=== PATIENT | male | born 1950 | race Caucasian/White ===

== ENCOUNTER 2017-11-30 17:25 | Emergency (ER) | payer MEDICARE ==
[~2017-11-30] VITALS: Ht 193 cm; Wt 126.4 kg
[~2017-11-30 17:25] MED LIST: ALLOPURINOL300 MG PO; ALTACE5 M1 PO; ALTACE5 MG PO; ASPIRIN E.C. 8181 MG PO; BENTYL 10MG10 MG/CAP PO; CARAFATE 1GM1 G PO; CARDI-OMEGA1000 MG PO; CARVEDILOL25 MG PO; COREG 25MG25 MG/TAB PO; FOLIC ACID 40400 MCG PO; FORTAMET1000 MG PO; GLYBURIDE5 MG PO; HCTZ/TRIAMTEREN1 TA1 PO; IRON325 M1 PO; KLOR-CON M2020 MEQ PO; LEVEMIR100 U/ML SC; LIPITOR 10MG10 MG PO; LIPITOR20 MG PO; LOPID 600M600 MG/TAB PO; LOPID600 MG PO; LORTAB 10/500 51 TA1 PO; NAPRELAN500 MG PO; NAPROSYN375 MG PO; NAPROXEN EC375 MG PO; NORCO 325 MG-101 TAB PO; NORCO 325 MG-7.1 TAB PO; NOVOLIN N100 U/ML SC; NOVOLOG FLEX100 U/ML SC; NOVOLOG FLEX100 U/ML SQ; POTASSIUM CHLO10 ME5 PO; POTASSIUM75 MG PO; PRAVACHOL 40MG40 MG PO; PREVACID 30MG30 M1 PO; PRISTIQ 50 MG T50 MG PO; PRISTIQ50 M1 PO; ST. JOSEPH81 M2 PO; TERAZOSIN HCL PO; TERAZOSIN HCL2 MG PO; TERAZOSIN HCL5 M1 PO; TRIAMTERENE/HCT1 TA2 PO; VITAMIN B-1000 MCG/T PO; VITAMIN C500 MG PO; XARELTO10 MG PO; [UNRECOGNIZED DRUG - OTHER] PO; potassium PO
[2017-11-30 17:27] VITALS: TEMP 98.4
[2017-11-30] MEDS ORDERED: ZYLOPRIM 300MG300 MG PO (18:16)
[2017-11-30 18:17] LABS: INR 1.1 (0.8-3.0); PROTHROMBIN TIME 12.4 SECONDS (9.7-12.8)
[2017-11-30] MEDS ORDERED: BENTYL 10MG10 MG/CAP PO (18:17)
[2017-11-30] MEDS ORDERED: PRINIVIL40 MG PO (18:17)
[2017-11-30] MEDS ORDERED: COREG 25MG25 MG/TAB PO (18:17)
[2017-11-30] MEDS ORDERED: DESYREL 50MG50 MG PO (18:18)
[2017-11-30] MEDS ORDERED: NAPROSYN500 MG PO (18:18)
[2017-11-30] MEDS ORDERED: FORTAMET500 M1 PO (18:18)
[2017-11-30 18:19] LABS: PARTIAL THROMBOPLASTIN TIME 30.6 SECONDS (26.0-37.0)
[2017-11-30] MEDS ORDERED: B-121000 MCG PO (18:19)
[2017-11-30] MEDS ORDERED: PROZAC 20MG20 MG PO (18:20)
[2017-11-30 18:24] LABS: INFLUENZA A NEGATIVE; INFLUENZA B NEGATIVE
[2017-11-30 18:36] LABS: BASO # 0.1 (0.0-0.2); BASO % 0.7 % (0.0-2.0); EOS # 0.5 (0.0-0.7); GRAN # 6.3 (1.4-6.5); GRAN % 58.5 % (42.2-75.2); HEMOGLOBIN 12.5 g/dl (13.5-18.0); LYMPH % 27.3 % (20.0-51.0); MEAN CELL VOLUME 89 fl (80.0-100.0); MEAN CORPUSCULAR HEMOGLOBIN 31 pg (27.0-31.0); MEAN CORPUSCULAR HGB CONC 34 g/dl (33.0-37.0); MEAN PLATELET VOLUME 9.8 fl (7.4-10.4); MONO # 0.8 (0.1-0.6); MONO % 7.8 % (1.7-9.3); PLATELET COUNT 350 K/mm3 (130-400); REDCELL DISTRIBUTION WIDTH-CV 12.8 % (11.5-14.5)
[2017-11-30 18:37] LABS: HEMATOCRIT 36.4 % (42.0-52.0)
[2017-11-30 18:59] LABS: ALANINE AMINOTRANSFERASE 31 U/L (21-72); ALKALINE PHOSPHATASE 74 U/L (50-136); ANION GAP 11 mmol/L (7-16); AST,SGOT 27 U/L (15-37); BILIRUBIN,TOTAL 0.6 mg/dL (0.0-1.0); BLOOD UREA NITROGEN 19 mg/dL (9-20); CALCIUM 9.2 mg/dL (8.4-10.2); CARBON DIOXIDE 25 mmol/L (22-30); CHLORIDE 105 mmol/L (98-107); CREATININE, serum 1.04 mg/dL (0.66-1.25); GLUCOSE 96 mg/dL (74-106); POTASSIUM 3.9 mmol/L (3.4-5.0); SODIUM 141 mmol/L (137-145); TOTAL PROTEIN 7.6 gm/dL (6.4-8.2)
[2017-11-30 19:10] LABS: TROPONIN-I < 0.012 ng/mL (0.000-0.034)
[2017-11-30] MEDS ORDERED: LEVAQUIN 5500 MG/TA1 PO (19:14)
[2017-11-30 19:40] VITALS: BP 168/84; PULSE 74
== END 2017-11-30 19:54 | disposition home or self-care (01) ==
LOC: COL.ER 17:25
PROVIDERS: Family Medicine
DX: J18.1 Lobar pneumonia, unspecified organism (principal); I10 Essential (primary) hypertension; E11.9 Type 2 diabetes mellitus without complications; Z79.4 Long term (current) use of insulin
CPT/HCPCS: J0696

== ENCOUNTER 2018-11-09 10:30 | Emergency (ER) | payer MEDICARE ==
[~2018-11-09] VITALS: Ht 193 cm; Wt 114.1 kg
[~2018-11-09 10:30] MED LIST changes: +B-121000 MCG PO; +DESYREL 50MG50 MG PO; +FORTAMET500 M1 PO; +LEVAQUIN 5500 MG/TA1 PO; +NAPROSYN500 MG PO; +PRINIVIL40 MG PO; +PROZAC 20MG20 MG PO; +ZYLOPRIM 300MG300 MG PO
[2018-11-09 10:34] VITALS: TEMP 98
[2018-11-09 11:23] LABS: COLLECTION METHOD CLEAN CATCH
[2018-11-09 11:32] LABS: BASO % 0.3 % (0.0-2.0); EOS # 0.3 (0.0-0.7); EOS % 2.4 % (0-4.0); GRAN # 11.3 (1.4-6.5); GRAN % 83.8 % (42.2-75.2); HEMATOCRIT 39.3 % (42.0-52.0); HEMOGLOBIN 13.7 g/dl (13.5-18.0); LYMPH # 0.8 (1.2-3.4); LYMPH % 5.8 % (20.0-51.0); MEAN CELL VOLUME 90 fl (80.0-100.0); MEAN CORPUSCULAR HEMOGLOBIN 32 pg (27.0-31.0); MEAN CORPUSCULAR HGB CONC 35 g/dl (33.0-37.0); MEAN PLATELET VOLUME 9.4 fl (7.4-10.4); MONO % 7.2 % (1.7-9.3); PLATELET COUNT 225 K/mm3 (130-400); RED BLOOD COUNT 4.35 M/mm3 (4.20-5.60); REDCELL DISTRIBUTION WIDTH-CV 13.1 % (11.5-14.5)
[2018-11-09 11:33] LABS: MUCOUS Present /lpf; PH 5 (5-8); SQUAMOUS EPITHELIAL 0-2 /hpf; URINE APPEARANCE Hazy; URINE BACTERIA None Seen /hpf; URINE BILIRUBIN Negative (NEGATIVE); URINE BLOOD Negative (NEGATIVE); URINE COLOR Amber; URINE GLUCOSE Negative (NEGATIVE); URINE KETONE Negative (NEGATIVE); URINE LEUKOCYTE ESTERASE Negative (NEGATIVE); URINE NITRATE Negative (NEGATIVE); URINE PROTEIN(semi-quant) 2+ (NEGATIVE)
[2018-11-09] MEDS ORDERED: PRAVACHOL 20MG20 MG PO (11:35)
[2018-11-09] MEDS ORDERED: ASPIRIN E.C. 8181 MG PO (11:36)
[2018-11-09 11:39] LABS: BILIRUBIN,TOTAL 1.1 mg/dL (0.0-1.0); CALCIUM 8.6 mg/dL (8.4-10.2); CREATININE, serum 1.01 mg/dL (0.66-1.25); POTASSIUM 3.9 mmol/L (3.4-5.0); TOTAL PROTEIN 7.7 gm/dL (6.4-8.2)
[2018-11-09] MEDS ORDERED: ZOFRAN ODT4 MG PO (13:58)
[2018-11-09 14:04] VITALS: BP 130/76; PULSE 94
== END 2018-11-09 14:04 | disposition home or self-care (01) ==
LOC: COL.ER 10:30
PROVIDERS: Emergency Medicine
DX: R10.13 Epigastric pain (principal); R19.7 Diarrhea, unspecified; R11.10 Vomiting, unspecified; Z79.4 Long term (current) use of insulin; Z79.82 Long term (current) use of aspirin; Z90.49 Acquired absence of other specified parts of digestive tract; Z87.19 Personal history of other diseases of the digestive system
CPT/HCPCS: J0780; J2405; J7030; Q9967

== ENCOUNTER → 2020-05-19 | Day surgery (SDC) | payer MEDICARE ==
[~2020-05-19] VITALS: Ht 193 cm; Wt 113.6 kg
[~2020-05-19] MED LIST changes: +PRAVACHOL 20MG20 MG PO; +ZOFRAN ODT4 MG PO
[2020-05-19 20:43] VITALS: TEMP 97.7
[2020-05-19 23:30] VITALS: BP 152/82; PULSE 66
== END ==
LOC: COL.ER 20:39 → SDCO 21:37
DX: T18.128A Food in esophagus causing other injury, initial encounter (principal); K22.2 Esophageal obstruction; K31.84 Gastroparesis; E11.9 Type 2 diabetes mellitus without complications; I10 Essential (primary) hypertension; E78.5 Hyperlipidemia, unspecified; M10.9 Gout, unspecified; G89.29 Other chronic pain; Z90.49 Acquired absence of other specified parts of digestive tract; Z96.649 Presence of unspecified artificial hip joint; Z79.4 Long term (current) use of insulin; Z79.82 Long term (current) use of aspirin; Z79.899 Other long term (current) drug therapy; Z87.891 Personal history of nicotine dependence; Z88.8 Allergy status to other drugs, medicaments and biological substances
CPT/HCPCS: J2405; J7030

== ENCOUNTER 2021-04-23 12:18 | Emergency (ER) | payer MEDICARE ==
[~2021-04-23] VITALS: Ht 193 cm; Wt 122.7 kg
[2021-04-23 13:10] LABS: BASO % 0.2 % (0.0-2.0); GRAN % 74.7 % (42.2-75.2); HEMATOCRIT 34.4 % (42.0-52.0); HEMOGLOBIN 11.4 g/dl (13.5-18.0); LYMPH # 0.6 (1.2-3.4); MEAN CELL VOLUME 90 fl (80.0-100.0); MEAN CORPUSCULAR HEMOGLOBIN 30 pg (27.0-31.0); MEAN CORPUSCULAR HGB CONC 33 g/dl (33.0-37.0); MEAN PLATELET VOLUME 10.5 fl (7.4-10.4); MONO # 0.4 (0.1-0.6); MONO % 9.6 % (1.7-9.3); PLATELET COUNT 153 K/mm3 (130-400); RED BLOOD COUNT 3.81 M/mm3 (4.20-5.60); REDCELL DISTRIBUTION WIDTH-CV 13.8 % (11.5-14.5)
[2021-04-23 13:19] LABS: BILIRUBIN,TOTAL 0.6 mg/dL (0.0-1.0); CALCIUM 8.5 mg/dL (8.4-10.2); CREATININE, serum 1.42 (0.66-1.25); POTASSIUM 4.6 mmol/L (3.4-5.0); TOTAL PROTEIN 7.8 gm/dL (6.4-8.2)
[2021-04-23] MEDS ORDERED: ZITHROMAX Z PA250 MG PO (15:37)
[2021-04-23 15:45] VITALS: BP 141/75; PULSE 87; TEMP 99.8
== END 2021-04-23 15:45 | disposition home or self-care (01) ==
LOC: COL.ER 12:18
PROVIDERS: Family Medicine
DX: U07.1 COVID-19 (principal); Z87.891 Personal history of nicotine dependence
CPT/HCPCS: J1100; J7030; Q0244

== ENCOUNTER 2021-10-01 11:18 | Emergency (ER) | payer MEDICARE ==
[~2021-10-01] VITALS: Ht 193 cm; Wt 115.9 kg
[~2021-10-01 11:18] MED LIST changes: +ZITHROMAX Z PA250 MG PO
[2021-10-01 11:20] VITALS: TEMP 97.8
[2021-10-01 11:38] LABS: BASO # 0.1 K/mm3 (0.0-0.2); BASO % 1.3 % (0.0-2.0); EOS # 0.4 K/mm3 (0.0-0.7); EOS % 4.2 % (0-4.0); GRAN # 5.9 K/mm3 (1.4-6.5); LYMPH # 2.8 K/mm3 (1.2-3.4); LYMPH % 26.8 % (20.0-51.0); MEAN CELL VOLUME 92 fl (80.0-100.0); MEAN CORPUSCULAR HEMOGLOBIN 31 pg (27.0-31.0); MEAN CORPUSCULAR HGB CONC 34 g/dl (33.0-37.0); MEAN PLATELET VOLUME 10.6 fl (7.4-10.4); MONO # 1.1 K/mm3 (0.1-0.6); MONO % 10.4 % (1.7-9.3); PLATELET COUNT 264 K/mm3 (130-400); RED BLOOD COUNT 3.89 M/mm3 (4.20-5.60); REDCELL DISTRIBUTION WIDTH-CV 13.5 % (11.5-14.5)
[2021-10-01 11:39] LABS: HEMATOCRIT 35.8 % (42.0-52.0)
[2021-10-01 11:40] LABS: INR 1.2 (0.8-3.0); PROTHROMBIN TIME 12.9 SECONDS (9.7-12.8)
[2021-10-01 11:42] LABS: PARTIAL THROMBOPLASTIN TIME 25.3 SECONDS (26.0-37.0)
[2021-10-01 11:50] LABS: ALBUMIN 3.7 gm/dL (3.4-4.8); BILIRUBIN,TOTAL 0.6 mg/dL (0.2-1.2); CALCIUM 9.5 mg/dL (8.4-10.2); CREATININE, serum 1.99 mg/dL (0.72-1.25); TOTAL PROTEIN 7.7 gm/dL (6.2-8.1)
[2021-10-01 11:55] LABS: TROPONIN-I 0.01 ng/mL (0.00-0.033)
[2021-10-01 12:07] LABS: POTASSIUM 4.6 mmol/L (3.5-4.5)
[2021-10-01 14:24] VITALS: BP 117/62; PULSE 68
== END 2021-10-01 14:38 | disposition home or self-care (01) ==
LOC: COL.ER 11:18
PROVIDERS: Family Medicine
DX: E11.65 Type 2 diabetes mellitus with hyperglycemia (principal); E86.0 Dehydration; I10 Essential (primary) hypertension; E78.5 Hyperlipidemia, unspecified; Z86.16 Personal history of COVID-19; Z79.4 Long term (current) use of insulin; Z79.84 Long term (current) use of oral hypoglycemic drugs; Z79.899 Other long term (current) drug therapy
CPT/HCPCS: J7120

== ENCOUNTER 2021-11-29 08:37 | Outpatient (CLI) | payer MEDICARE ==
[~2021-11-29] VITALS: Ht 193 cm; Wt 117.9 kg
[2021-11-29] VITALS (15 sets, daily range): BP systolic 111–158; BP diastolic 59–94; PULSE 53–61; TEMP 98.4
[2021-11-29 09:31] LABS: HEMATOCRIT 37.5 % (42.0-52.0); HEMOGLOBIN 12.6 g/dl (13.5-18.0); MEAN CELL VOLUME 90 fl (80.0-100.0); MEAN CORPUSCULAR HEMOGLOBIN 30 pg (27-31); MEAN CORPUSCULAR HGB CONC 34 g/dl (33.0-37.0); MEAN PLATELET VOLUME 9.9 fl (7.4-10.4); PLATELET COUNT 288 K/mm3 (130-400); RED BLOOD COUNT 4.15 M/mm3 (4.20-5.60); REDCELL DISTRIBUTION WIDTH-CV 13.5 % (11.5-14.5)
[2021-11-29] MEDS ORDERED: MASON NATURAL2000 IU PO (09:32)
[2021-11-29] MEDS ORDERED: FISH OIL1000 MG PO (09:33)
[2021-11-29] MEDS ORDERED: PERIACTIN 4MG TA4 MG PO (09:36)
[2021-11-29 09:37] LABS: INR 1.2 (0.8-3.0); PROTHROMBIN TIME 13.1 SECONDS (9.7-12.8)
[2021-11-29] MEDS ORDERED: NEURONTIN100 MG/CAP PO (09:38)
[2021-11-29 09:40] LABS: PARTIAL THROMBOPLASTIN TIME 31.9 SECONDS (26.0-37.0)
[2021-11-29 09:52] LABS: CALCIUM 9.1 mg/dL (8.4-10.2); CREATININE, serum 1.32 mg/dL (0.72-1.25); POTASSIUM 3.8 mmol/L (3.5-4.5)
--- NOTE | 2021-11-29 10:54 | NUR ---
Cardiac catheterization information packet provided to pt and , along with new consent for heart cath procedure. Pt's will sign due to recent anesthesia from IDALMIS procedure. Pt is awake and expresses understanding for heart cath procedure today.
--- NOTE | 2021-11-29 11:00 | NUR ---
REPORT received from Maricruz JAMES. Pt resting supine on stretcher, aaox3, pwd, resp reg and unlabored. tele initiated. at . Dr. Oglesby has discussed plan for LHC today. is reading about LHC and is signing consent at this time. Pt denies any concerns at this time. He is aware of need to remain NPO.
--- NOTE | 2021-11-29 12:30 | NUR ---
Pt to laborer high density press at this time.
--- NOTE | 2021-11-29 12:53 | NUR ---
SEE MERGE DOCUMENTATION FOR MEDICATION ADMINISTRATION AND INTRA/POST PROCEDURE SEDATION ASSESSMENTS.
--- NOTE | 2021-11-29 13:30 | NUR ---
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 TR band in place to rt wrist. CMS is intact distal. prior to metallurgical laboratory assistant, piv to rt wrist was dc 'd with cath intact, and another IV established , 20g to LFA. 1/2ns infusing at 100 cc/hr per dialaflow to lfa. pt is relaxed, SR on monitor. I have reviewed discharge plan with pt. lunch ordered. call light in reach.
--- NOTE | 2021-11-29 16:45 | NUR ---
Pt is ready for departure at this time. TR band was deflated with no problems. site dressed with bandaid, folded 2x2 and coban. cms remains intact distal. I reviewed dc/rx and fu instructions with pt and . Specifically instructed pt to hold metformin x 48 hrs. next dose friday. both verbalize understanding. pt is up and amb with steady gait in room. IV dc'd with cath intact, dressing applied. Pt to exit via wheelchair.
== END 2021-11-29 18:29 | disposition home or self-care (01) ==
LOC: COL.RAD 08:37
PROVIDERS: Internal Medicine Cardiovascular Disease
DX: I35.0 Nonrheumatic aortic (valve) stenosis (principal)
CPT/HCPCS: J1644; J2250; J2704; J3010; Q9967

== ENCOUNTER 2022-06-16 10:23 | Emergency (ER) | payer MEDICARE ==
[~2022-06-16] VITALS: Ht 193 cm; Wt 113.6 kg
[~2022-06-16 10:23] MED LIST changes: +FISH OIL1000 MG PO; +MASON NATURAL2000 IU PO; +NEURONTIN100 MG/CAP PO; +PERIACTIN 4MG TA4 MG PO
[2022-06-16 10:33] VITALS: TEMP 96.9
[2022-06-16 11:16] LABS: BASO # 0.1 K/mm3 (0.0-0.2); BASO % 0.9 % (0.0-2.0); EOS # 0.5 K/mm3 (0.0-0.7); EOS % 4.6 % (0.0-4.0); GRAN # 6.6 K/mm3 (1.4-6.5); GRAN % 66.8 % (42.2-75.2); HEMOGLOBIN 10.1 g/dl (13.5-18.0); LYMPH % 20.3 % (20.0-51.0); MEAN CELL VOLUME 90 fl (80.0-100.0); MEAN CORPUSCULAR HEMOGLOBIN 29 pg (27-31); MEAN CORPUSCULAR HGB CONC 33 g/dl (33.0-37.0); MEAN PLATELET VOLUME 9.5 fl (7.4-10.4); MONO # 0.7 K/mm3 (0.1-0.6); MONO % 6.8 % (1.7-9.3); PLATELET COUNT 340 K/mm3 (130-400); RED BLOOD COUNT 3.46 M/mm3 (4.20-5.60); REDCELL DISTRIBUTION WIDTH-CV 13.3 % (11.5-14.5)
[2022-06-16 11:24] LABS: ACETONE,SERUM NEGATIVE
[2022-06-16 11:32] LABS: COLLECTION METHOD CLEAN CATCH
[2022-06-16 11:33] LABS: ALANINE AMINOTRANSFERASE 19 U/L (0-55); ALBUMIN 2.9 gm/dL (3.4-4.8); ALKALINE PHOSPHATASE 56 U/L (40-150); ANION GAP 11 mmol/L (7-16); AST,SGOT 16 U/L (5-34); BILIRUBIN,TOTAL 0.5 mg/dL (0.2-1.2); BLOOD UREA NITROGEN 16 mg/dL (8-26); CALCIUM 9.1 mg/dL (8.4-10.2); CARBON DIOXIDE 23 mmol/L (23-31); CHLORIDE 103 mmol/L (98-107); GLUCOSE 175 mg/dL (70-99); POTASSIUM 4.1 mmol/L (3.5-4.5); SODIUM 137 mmol/L (136-145); TOTAL PROTEIN 7.2 gm/dL (6.2-8.1)
[2022-06-16 11:40] LABS: TROPONIN-I < 0.010 ng/mL (0.00-0.033)
[2022-06-16 12:05] LABS: MUCOUS Present (NOT PRESENT); PH 5 (5-8); URINE APPEARANCE Clear (CLEAR/HAZY); URINE BACTERIA None Seen /hpf (NONE SEEN); URINE COLOR Yellow (YELLOW); URINE RBC 0-2 /hpf (0-2)
[2022-06-16 12:06] LABS: URINE BLOOD Negative (NEGATIVE); URINE GLUCOSE Negative (NEGATIVE); URINE KETONE Negative (NEGATIVE); URINE NITRATE Negative (NEGATIVE); URINE PROTEIN(semi-quant) 2+ (NEGATIVE)
[2022-06-16 14:40] VITALS: BP 154/80; PULSE 68
== END 2022-06-16 14:40 | disposition home or self-care (01) ==
LOC: COL.ER 10:23
PROVIDERS: Physician Assistant
DX: E11.649 Type 2 diabetes mellitus with hypoglycemia without coma (principal); R74.02 Elevation of levels of lactic acid dehydrogenase [LDH]; Z87.891 Personal history of nicotine dependence; Z79.4 Long term (current) use of insulin; Z28.310 Unvaccinated for COVID-19
CPT/HCPCS: J7120

== ENCOUNTER 2022-07-01 06:48 | Outpatient (CLI) | payer MEDICARE ==
[2022-07-01] VITALS (7 sets, daily range): BP systolic 122–146; BP diastolic 72–88; PULSE 62–69; TEMP 97.8
[~2022-07-01] VITALS: Ht 190.5 cm; Wt 116.6 kg
[2022-07-01] MEDS ORDERED: REMERON 15M15 MG/TA1 PO (07:09)
[2022-07-01] MEDS ORDERED: CRESTOR20 MG PO (07:10)
[2022-07-01] MEDS ORDERED: ZYLOPRIM 300MG300 MG PO (07:11)
--- NOTE | 2022-07-01 10:30 | NUR ---
Pt is doing fine after his myelogram. I reviewed dc instructions with pt and , they both verbalize understanding. Pt denies any new pain, numbness or tingling, he is able to transfer to wheelchair with no problem. To exit via wheelchair.
== END 2022-07-01 10:45 | disposition home or self-care (01) ==
LOC: COL.RAD 06:48
DX: M47.817 Spondylosis without myelopathy or radiculopathy, lumbosacral region (principal); M48.07 Spinal stenosis, lumbosacral region; Z98.890 Other specified postprocedural states
CPT/HCPCS: Q9966

== ENCOUNTER → 2024-02-23 | Outpatient (CLI) | payer MEDICARE ==
[~2024-02-23] MED LIST changes: +CRESTOR20 MG PO; +PROVIGIL200 MG PO; +REMERON 15M15 MG/TA1 PO
== END ==
LOC: MHCPAIN 14:12
DX: M96.1 Postlaminectomy syndrome, not elsewhere classified (principal); M48.061 Spinal stenosis, lumbar region without neurogenic claudication; M54.16 Radiculopathy, lumbar region; I10 Essential (primary) hypertension; J44.9 Chronic obstructive pulmonary disease, unspecified; E11.9 Type 2 diabetes mellitus without complications; Z79.4 Long term (current) use of insulin
CPT/HCPCS: G0463

== ENCOUNTER → 2024-04-26 | Outpatient (CLI) | payer MEDICARE | LOC: MHCPAIN 04-14 09:57 | DX: M47.817 Spondylosis without myelopathy or radiculopathy, lumbosacral region (principal); M96.1 Postlaminectomy syndrome, not elsewhere classified; M54.50 Low back pain, unspecified ==

== ENCOUNTER → 2024-05-04 | Outpatient (CLI) | payer MEDICARE | LOC: MHCPAIN 09:31 | DX: M48.061 Spinal stenosis, lumbar region without neurogenic claudication (principal); M96.1 Postlaminectomy syndrome, not elsewhere classified; E11.40 Type 2 diabetes mellitus with diabetic neuropathy, unspecified; Z79.4 Long term (current) use of insulin; I10 Essential (primary) hypertension; J44.9 Chronic obstructive pulmonary disease, unspecified | CPT/HCPCS: G0463 ==

== ENCOUNTER → 2024-06-08 | Outpatient (CLI) | payer MEDICARE | LOC: MHCPAIN 09:19 | DX: M48.062 Spinal stenosis, lumbar region with neurogenic claudication (principal); M96.1 Postlaminectomy syndrome, not elsewhere classified; I10 Essential (primary) hypertension; J44.9 Chronic obstructive pulmonary disease, unspecified; E11.9 Type 2 diabetes mellitus without complications; Z79.4 Long term (current) use of insulin | CPT/HCPCS: G0463 ==

== ENCOUNTER → 2024-07-15 | Outpatient (CLI) | payer MEDICARE ==
[~2024-07-15] MED LIST changes: +Atropine 1 MG/10 ML SYRINGE IV ONE; +Glycopyrrolate 0.2 MG/ML 1 ML VIAL ONE; +Lidocaine PF 2% (20 MG/ML) 5 ML VIAL ONE; +Midazolam 2 MG/2 ML VIAL ONE; +ePHEDrine 50 MG/10 ML VIAL IV ONE; +fentaNYL 50 MCG/ML 2 ML VIAL ONE
== END ==
LOC: MHCPAIN 07:30
DX: M47.817 Spondylosis without myelopathy or radiculopathy, lumbosacral region (principal); Z98.1 Arthrodesis status; M54.50 Low back pain, unspecified
CPT/HCPCS: J0461; J0665; J2250; J3010

== ENCOUNTER → 2024-10-11 | Outpatient (CLI) | payer MEDICARE ==
[~2024-10-11] MED LIST changes: -Atropine 1 MG/10 ML SYRINGE IV ONE; -Glycopyrrolate 0.2 MG/ML 1 ML VIAL ONE; -Lidocaine PF 2% (20 MG/ML) 5 ML VIAL ONE; -Midazolam 2 MG/2 ML VIAL ONE; -ePHEDrine 50 MG/10 ML VIAL IV ONE; -fentaNYL 50 MCG/ML 2 ML VIAL ONE
== END ==
LOC: MHCPAIN 08:52
DX: M48.061 Spinal stenosis, lumbar region without neurogenic claudication (principal); M96.1 Postlaminectomy syndrome, not elsewhere classified; M79.2 Neuralgia and neuritis, unspecified; M54.16 Radiculopathy, lumbar region; G89.29 Other chronic pain
CPT/HCPCS: G0463